=== PATIENT | male | born 1935 | race Caucasian/White ===

== ENCOUNTER 2023-10-26 06:21 | Day surgery (SDC) | payer MEDICARE, OTHER, SELFPAY ==
[2023-10-26 09:33] VITALS: BMI 31.7
[2023-10-26 09:38] VITALS: BP 108/51
[2023-10-26 09:56] VITALS: BMI 31.7
[2023-10-26 12:17] VITALS: BP 97/53
[2023-10-26 12:30] VITALS: BP 98/59
[2023-10-26 12:45] VITALS: BP 113/59
== END 2023-10-26 13:10 | disposition home or self-care (01) ==
LOC: SDS 06:21
PROVIDERS: ATTENDING PHYSICIAN Internal Medicine
DX: K22.2 Esophageal obstruction (principal); Q39.9 Congenital malformation of esophagus, unspecified; K44.9 Diaphragmatic hernia without obstruction or gangrene; T18.2XXA Foreign body in stomach, initial encounter; Y93.89 Activity, other specified; R13.10 Dysphagia, unspecified
CPT/HCPCS: 43249; C1726

== ENCOUNTER → 2024-01-18 06:11 | Outpatient (REF) | payer MEDICARE, OTHER, SELFPAY ==
[2024-01-18 09:40] LABS: Urine Albumin Negative (Neg - Trace); Urine Bilirubin Negative (Negative); Urine Character Clear (Clear); Urine Color Yellow; Urine Glucose Negative (Negative); Urine Ketone Negative (Negative); Urine Leukocyte Trace (Negative); Urine Nitrite Negative (Negative); Urine Occult Blood 1+ (Negative); Urine Urobilinogen Negative (Neg - 1+)
[2024-01-18 10:01] LABS: % Basophils 0.7 % (0-2); % Eosinophils 7.5 % (0-6); % Immature Granulocytes 0.2 % (0-0.5); % Lymphocytes 31.1 % (20.5-51.1); % Monocytes 10.4 % (1.7-9.3); % Neutrophils 50.1 % (42.2-75.2); Absolute Eosinophils 0.4 10^3/uL (0-0.7); Absolute Lymphocytes 1.7 10^3/uL (1.2-3.4); Absolute Monocytes 0.6 10^3/uL (0.1-0.6); Absolute Neutrophils 2.8 10^3/uL (1.4-6.5); Hematocrit 38.3 % (39.0-52.0); Hemoglobin 12.4 g/dL (13.0-18.0); Mean Corp Hgb Conc. 32.4 g/dL (33.0-37.0); Mean Corpuscular Hgb 31.6 pg (27.0-31.0); Mean Corpuscular Volume 97.5 fL (80.0-94.0); Mean Platelet Volume 11.5 fL (7.4-10.4); Nucleated Red Blood Cells % 0 % (-); Platelet Count 159 10^3/uL (130-400); Red Blood Cell Count 3.93 10^6/uL (4.70-6.10); Red Cell Dist. Width 13.9 % (11.5-14.5); White Blood Cell Count 5.5 10^3/uL (4.8-10.8)
[2024-01-18 10:06] LABS: Urine Calcium Oxalate Crystals Present; Urine Red Blood Cell 0-2 /HPF (0-2)
[2024-01-18 10:34] LABS: ALT (SGPT) 17 U/L (0-50); AST (SGOT) 21 U/L (17-59); Albumin 3.6 g/dl (3.5-5.0); Alkaline Phosphatase 95 U/L (38-126); Blood Urea Nitrogen 18 mg/dl (9-20); Calcium 9.3 mg/dl (8.4-10.2); Carbon Dioxide 26 mmol/L (22-30); Chloride 108 mmol/L (98-107); Glucose 97 mg/dl (70-99); HDL Cholesterol 46 mg/dl; LDL Cholesterol, Calculated 45 mg/dl; Potassium 4.3 mmol/L (3.5-5.1); Sodium 142 mmol/L (135-145); Total Bilirubin 0.6 mg/dl (0.2-1.3); Total Cholesterol 117 mg/dl (50-199); Total Protein 6.2 g/dl (6.3-8.2); Triglyceride 130 mg/dl (10-149); Very Low Density Lipoprotein 26 mg/dl (0-30); eGFR > 60.00
[2024-01-18 10:36] LABS: C-Reactive Protein < 5.00 mg/L (0.0-10.00)
[2024-01-18 10:53] LABS: Vitamin D, 25-OH*** 47.2 ng/mL (30-80)
== END ==
LOC: HWLAB 06:11
PROVIDERS: ATTENDING PHYSICIAN Internal Medicine Rheumatology; FAMILY PHYSICIAN Internal Medicine Geriatric Medicine
DX: I10 Essential (primary) hypertension (principal); I49.3 Ventricular premature depolarization; E78.2 Mixed hyperlipidemia; I45.10 Unspecified right bundle-branch block; R06.2 Wheezing; E03.9 Hypothyroidism, unspecified; E55.9 Vitamin D deficiency, unspecified; M11.20 Other chondrocalcinosis, unspecified site; Z79.899 Other long term (current) drug therapy; K21.9 Gastro-esophageal reflux disease without esophagitis; K59.00 Constipation, unspecified
CPT/HCPCS: 36415; 80053; 80061; 81003; 81015; 82306; 85025; 86140

== ENCOUNTER → 2024-02-11 12:53 | Outpatient (REF) | payer MEDICARE, OTHER, SELFPAY | LOC: HWRCS 12:53 | PROVIDERS: ATTENDING PHYSICIAN Internal Medicine Cardiovascular Disease; FAMILY PHYSICIAN Internal Medicine Geriatric Medicine | DX: Z98.890 Other specified postprocedural states (principal); I10 Essential (primary) hypertension; I49.3 Ventricular premature depolarization; I45.10 Unspecified right bundle-branch block | CPT/HCPCS: 93306 ==

== ENCOUNTER 2024-02-26 17:16 | Day surgery (SDC) | payer MEDICARE, OTHER, SELFPAY ==
[2024-02-26] VITALS (9 sets, daily range): BP systolic 121–168; BP diastolic 58–84
--- NOTE | 2024-02-26 17:41 | ED.GENMED ---
History of Present Illness
General
Chief Complaint: Swallowing Problem
Time Seen by Provider: 02/26/24 17:30
History of Present Illness
History of Present Illness:
Patient is an 88-year-old male with a history of esophageal stenosis and prior food impactions who presents with similar symptoms. He notes that he was eating fish last night and felt a piece get stuck. States he has not been able to tolerate any
p.o. liquids or solids
Past History
Past History
ED Past Medical History: CAD, COPD, HTN, Hypercholesterolemia, [place], Hypothyroidism and Other
ED Past Surgical History: Appendectomy, Cardiac (Stents X 2), Orthopedic (Right knee replacement) and Other (Hernia repair)
Social History
Tobacco: Former smoker
Alcohol: Occasional
Drug: None
Personal:
Living: with family
Employment: Employed
Family History
Family History: Hypertension
Phy Exam
Physical Exam
Physical Exam:
General: uncomfortable, holding emesis basin
Head: NCAT
Neck, Normal in appearance, no swelling
Respiratory: No Respiratory distress
Abdomen: No distension, no tenderness
Ext: no edema
Neuro: ARREDONDO, AOx4
Psych: Normal affect
Skin: Normal color
Course
Orders/Labs/Results
Orders:
Orders
02/26/24 17:24
EKG with chest pain [ECG as needed] As Directed
ECG as needed for:: Chest Pain
02/26/24 17:27
Electrocardiogram (*1) Urgent
Reason for Study: Chest Pain
Cardiac Monitoring- Treatment ONCE
EKG- Treatment ONCE
IV Insert/Care/Rem.- Treatment PRN
O2 Therapy [RESP] Urgent
Titrate/Wean O2 to maintain O2 sat greater than (%): 90
Special Instructions: Maintain sats >/=90%
Pulse Ox/spot Check [RESP] Urgent
Quantity: 1
Special Instructions: ON ROOM AIR
02/26/24 18:02
Complete Blood Count/With Diff Urgent
Comprehensive Metabolic Panel Urgent
LFT [Bghds-Pjac-Dtzwryj] Urgent
Lipase Urgent
Troponin I Urgent
02/26/24 18:22
Pantoprazole [Protonix IV] 40 mg IV NOW STA
02/26/24 18:51
Famotidine [Pepcid] 20 mg .ROUTE .STK-MED ONE
Glycopyrrolate [Robinul] 0.2 mg .ROUTE .STK-MED ONE
Lidocaine HCl/Pf [Xylocaine-Mpf 1% Vial] 50 mg .ROUTE .STK-MED ONE
Neostigmine [Prostigmin] 3 mg .ROUTE .STK-MED ONE
Ondansetron Injectable [Zofran] 4 mg .ROUTE .STK-MED ONE
Phenylephrine HCl/0.9% NaCl [Justyn-Synephrine] 1,000 mcg .ROUTE .STK-MED ONE
Propofol [Diprivan] 20 ml .ROUTE .STK-MED
Rocuronium [place] [Rocuronium] 50 mg .ROUTE .STK-MED ONE
Succinylcholine Chloride [Succinylcholine] 200 mg .ROUTE .STK-MED ONE
Sugammadex Sodium [Bridion] 200 mg .ROUTE .STK-MED ONE
02/26/24 18:59
Morphine Sulfate 4 mg IV NOW STA
Abnormal Lab Results
02/26/24
18:02
RBC 4.49 L 10^6/uL
(4.70-6.10)
MCH 32.1 H pg
(27.0-31.0)
MPV 10.8 H fL
(7.4-10.4)
Chloride 108 H mmol/L
(98-107)
BUN 21 H mg/dl
(9-20)
Total Bilirubin 2.0 H mg/dl
(0.2-1.3)
02/26/24 18:02
02/26/24 18:02
Vital Signs
Initial and Last Documented VS:
Initial Vital Signs
Temp Pulse Resp BP Pulse Ox
98 F 82 18 138/71 93
02/26/24 17:17 02/26/24 17:17 02/26/24 17:17 02/26/24 17:17 02/26/24 17:17
Last Documented Vital Signs
Temp Pulse Resp BP Pulse Ox
97.6 F 85 16 136/73 99
02/26/24 19:58 02/26/24 20:00 02/26/24 20:00 02/26/24 20:00 02/26/24 20:13
*Critical Care Note
Total Time (30-74mins, 75-104mins- exclusive of procedures): Not Applicable
ED Attending Note
ED Attending Note
ED Attending Note:
Patient with suspected esophageal food impaction. Consulted Dr. Saha, buyer intern on-call who will see the patient
Patient going to endoscopy for definitive care
-
Portions of this chart may have been created with voice recognition software.� Occasional wrong word or��sound alike� substitutions may have occurred due to the inherent limitations of voice recognition software.
Discharge Plan
Departure
Patient Disposition: GI LAB
Date of Disposition: 02/26/24
Time of Disposition: 18:56
Admit to: GI lab
Admit to doctor: Yifan
Presentation/result/management discussed w/ accepting MD/DO: Yifan
Patient with high blood pressure during this ER visit?: Yes
Condition: Good
Covid-19: Not Applicable
Discharge Problem:
Esophageal obstruction due to food impaction
Prescriptions:
No Action
levothyroxine 75 MCG tablet
88 mcg PO DAILY
albuterol sulfate 1 PUFF HFA aerosol inhaler
2 puff inhalation R Q4HPRN PRN (Reason: Wheezing, SOB) Qty: 1 0RF
latanoprost
1 drp BOTH EYES HS
multivitamin Tablet
1 tab PO DAILY
losartan 50 mg Tablet
50 mg PO BID
nitroglycerin 0.3 mg Tablet, Sublingual
0.3 mg SUBLINGUAL Q5-15M PRN (Reason: chest pain)
valacyclovir 500 mg Tablet
500 mg PO TID
calcium carbonate-vitamin D2 600 mg calcium- 200 unit Tablet
1 tab PO DAILY
colchicine 0.5 mg Tablet
0.6 mg PO .MONWEDFRI
PreserVision AREDS 2,148 mcg-113 mg-45 mg-17.4mg Tablet
2 tab PO BID
pantoprazole [Protonix] 40 mg tablet,delayed release (DR/EC)
40 mg PO BID Qty: 120 0RF
amoxicillin-pot clavulanate [Augmentin] 250-62.5 mg/5 mL suspension for reconstitution
10 ml PO TID 4 Days Qty: 120 0RF
atorvastatin 40 MG tablet
40 mg PO QPM Qty: 0 0RF
clopidogrel 75 MG tablet
75 mg PO DAILY Qty: 0 0RF
doxazosin 2 MG tablet
2 mg PO DAILY Qty: 0 0RF
prednisone 20 mg tablet
10 mg PO PRN PRN (Reason: Gout)
carvedilol 6.25 mg Tablet
6.25 mg PO BID
amlodipine 2.5 mg Tablet
2.5 mg PO DAILY
albuterol 90 mcg/actuation Aerosol
90 mcg INHALATION PRN PRN (Reason: SOB)
Anoro Ellipta 62.5-25 mcg/actuation Blister With Device
1 inh INHALATION DAILY
Referrals:
Zurdo Duran MD [Family Provider] -
Discharge Date and Time
Print Language: COMORAN
[2024-02-26 18:09] LABS: % Basophils 0.3 % (0-2); % Eosinophils 2.3 % (0-6); % Immature Granulocytes 0.3 % (0-0.5); % Lymphocytes 21.2 % (20.5-51.1); % Monocytes 7.5 % (1.7-9.3); % Neutrophils 68.4 % (42.2-75.2); Absolute Eosinophils 0.2 10^3/uL (0-0.7); Absolute Lymphocytes 1.5 10^3/uL (1.2-3.4); Absolute Monocytes 0.5 10^3/uL (0.1-0.6); Absolute Neutrophils 4.8 10^3/uL (1.4-6.5); Hematocrit 41.7 % (39.0-52.0); Hemoglobin 14.4 g/dL (13.0-18.0); Mean Corp Hgb Conc. 34.5 g/dL (33.0-37.0); Mean Corpuscular Hgb 32.1 pg (27.0-31.0); Mean Corpuscular Volume 92.9 fL (80.0-94.0); Mean Platelet Volume 10.8 fL (7.4-10.4); Nucleated Red Blood Cells % 0 % (-); Platelet Count 183 10^3/uL (130-400); Red Blood Cell Count 4.49 10^6/uL (4.70-6.10); Red Cell Dist. Width 14.1 % (11.5-14.5)
[2024-02-26 18:21] LABS: ALT (SGPT) 24 U/L (0-50); AST (SGOT) 25 U/L (17-59); Albumin 4.4 g/dl (3.5-5.0); Alkaline Phosphatase 113 U/L (38-126); Blood Urea Nitrogen 21 mg/dl (9-20); Calcium 10.1 mg/dl (8.4-10.2); Carbon Dioxide 27 mmol/L (22-30); Chloride 108 mmol/L (98-107); Direct Bilirubin 0.2 mg/dl (0.0-0.4); Glucose 88 mg/dl (70-99); Lipase 52 U/L (23-300); Potassium 3.5 mmol/L (3.5-5.1); Sodium 144 mmol/L (135-145); Total Protein 7.3 g/dl (6.3-8.2); eGFR > 60.00
--- NOTE | 2024-02-26 18:26 | CON.GI ---
Consultation
-
Date/Time Consultation Performed: 02/26/24
Performing Provider: Carmelo Saha MD
Reason for Consultation: dysphagia
Medical History
Chief Complaint / HPI
Chief Complaint: dysphagia
History of Present Illness:
The patient is an 88-year-old male with past medical history as noted with food impaction. He has had longstanding history of dysphagia, tortuous esophagus and esophageal stricture in the past, status post several dilations including October of this
year to 15 mm. He has had some increasing dysphagia over the past several weeks, and last night when eating fish had acute onset of dysphagia, unable to tolerate secretions since then. He does have some mild discomfort though no severe discomfort,
and denies any fevers, cough or other chest pain. He had an echo recently that showed normal EF and otherwise no severe valvular disease. Denies any exertional chest pain is overall been doing well from a cardiac standpoint.
Past Medical History
Past Medical History: Other (Coronary disease, status post IN in 2006, CVA with left carotid endarterectomy, BPH, hypothyroid, osteoporosis, obstructive sleep apnea, hypertension, high cholesterol, right bundle branch block, PSVT, PVC, COPD,
pseudogout, squamous cell carcinoma.)
Past Surgical History: Other (Carotid Endarterectomy - L Hernia Repair Appendectomy Tonsillectomy R Knee replacement(2012) Cardiac cath Moh's LT lower leg 03/2018)
Social History
Tobacco: Former Smoker
Alcohol: None
Family History
Family History: Reviewed & Not Pertinent
Allergies / Home Medications
Allergy/AdvReac Type Severity Reaction Status Date / Time
No Known Allergies Allergy Verified 10/26/23 09:37
�Medication �Instructions �Recorded
levothyroxine 75 mcg tablet 88 mcg PO DAILY Thyroid 06/18/12
albuterol sulfate 90 mcg/actuation 2 puff inhalation R Q4HPRN PRN 11/15/20
aerosol inhaler Wheezing, SOB ##1
latanoprost 1 drp BOTH EYES HS glaucoma 06/18/23
calcium carb-ergocalciferol (vit 1 tab PO DAILY Supplement 06/19/23
D2) 600 mg calcium-200 unit tablet
colchicine 0.5 mg tablet 0.6 mg PO .MONWEDFRI Gout 06/19/23
losartan 50 mg tablet 50 mg PO BID Blood Pressure 06/19/23
multivitamin 1 tab PO DAILY Blood Pressure 06/19/23
nitroglycerin 0.3 mg sublingual 0.3 mg sublingual Q5-15M PRN chest 06/19/23
tablet pain
valacyclovir 500 mg tablet 500 mg PO TID 06/19/23
vitamins A,C,O-pdes-ldayjy 2,148 2 tab PO BID Supplement 06/19/23
mcg-113 mg-45 mg-17.4 mg tablet
(PreserVision AREDS)
amoxicillin 250 mg-potassium 10 ml PO TID Infection 4 days #120 06/20/23
clavulanate 62.5 mg/5 mL oral mL
suspension (Augmentin)
atorvastatin 40 mg tablet 40 mg PO QPM High cholesterol ##0 06/20/23
clopidogrel 75 mg tablet 75 mg PO DAILY Blood clot 06/20/23
prevention/tx ##0
doxazosin 2 mg tablet 2 mg PO DAILY prostate ##0 06/20/23
pantoprazole 40 mg tablet,delayed 40 mg PO BID Gastrointestinal 06/20/23
release (Protonix) issue #120 tabs
albuterol 90 mcg/actuation aerosol 90 mcg inhalation PRN PRN SOB 08/14/23
inhaler
amlodipine 2.5 mg tablet 2.5 mg PO DAILY 08/14/23
carvedilol 6.25 mg tablet 6.25 mg PO BID 08/14/23
prednisone 20 mg tablet 10 mg PO PRN PRN Gout 08/14/23
umeclidinium 62.5 mcg-vilanterol 1 inh inhalation DAILY 08/14/23
25 mcg/actuation powdr for
inhalation (Anoro Ellipta)
Review of Systems
-
All other systems: A 12 pt ROS was Negative except as stated above in HPI
Vital Signs
Temp Pulse Resp BP Pulse Ox
98 F 82 18 138/71 93
02/26/24 17:17 02/26/24 17:17 02/26/24 17:17 02/26/24 17:17 02/26/24 17:17
Physical Exam
Exam
General: NAD
HEENT: MMM, anicteric, no lymphadenopathy
Heart: Regular, no murmurs
Lungs: CTA bilaterally
Abdomen: normal bowel sounds, soft, no tenderness, no rebound or guarding, no masses, bruits or ascites
Extremeties: no edema
Skin: no rashes
Results
WBC 7.0 10^3/uL (4.8-10.8) 02/26/24 18:02
Hgb 14.4 g/dL (13.0-18.0) 02/26/24 18:02
Hct 41.7 % (39.0-52.0) 02/26/24 18:02
MCV 92.9 fL (80.0-94.0) 02/26/24 18:02
Plt Count 183 10^3/uL (130-400) 02/26/24 18:02
Absolute Neuts (auto) 4.8 10^3/uL (1.4-6.5) 02/26/24 18:02
Sodium 144 mmol/L (135-145) 02/26/24 18:02
Potassium 3.5 mmol/L (3.5-5.1) 02/26/24 18:02
Chloride 108 mmol/L (98-107) H 02/26/24 18:02
Carbon Dioxide 27 mmol/L (22-30) 02/26/24 18:02
BUN 21 mg/dl (9-20) H 02/26/24 18:02
Creatinine 0.7 mg/dL (0.7-1.3) 02/26/24 18:02
Calcium 10.1 mg/dl (8.4-10.2) 02/26/24 18:02
Total Bilirubin 2.0 mg/dl (0.2-1.3) H 02/26/24 18:02
AST 25 U/L (17-59) 02/26/24 18:02
ALT 24 U/L (0-50) 02/26/24 18:02
Alkaline Phosphatase 113 U/L (38-126) 02/26/24 18:02
Lipase 52 U/L (23-300) 02/26/24 18:02
Diagnostic Image Results:
Prior GI Procedures:
EGD:
Colonoscopy:
Assessment / Plan
-
1. Food impaction: With history of esophageal stricture status post multiple dilations in the past and tortuous esophagus, now with recurrent impaction, unable to tolerate secretions. Will plan urgent endoscopy. Discussed risks and benefits at
length with him and his . Pending this would likely plan repeat EGD as an outpatient with Dr. Asher for further dilation.
-
-
Thank you for consultation and allowing me to participate in the patient's care. Please call the group leader semiconductor processing GI physician during the after hours with any questions or concerns.
[2024-02-26 18:32] LABS: Troponin I < 0.012 ng/ml
[2024-02-26] MEDS: PROTONIX IV 40 MG IV (18:43)
--- NOTE | 2024-02-26 20:11 | SUR.PHASEI ---
patient post endo for food bolus - awake and alert. Known CLAUDIA - wears CPAP nightly and knows to use with any rest period today, loose non-productive cough. 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 vss.
== END 2024-02-26 20:40 ==
LOC: SDS 17:16
PROVIDERS: Emergency Medicine; ATTENDING PHYSICIAN Emergency Medicine; FAMILY PHYSICIAN Internal Medicine Geriatric Medicine
DX: T18.128A Food in esophagus causing other injury, initial encounter (principal); W44.F3XA Food entering into or through a natural orifice, initial encounter; K22.2 Esophageal obstruction; R13.10 Dysphagia, unspecified; I25.10 Atherosclerotic heart disease of native coronary artery without angina pectoris; I45.10 Unspecified right bundle-branch block; I10 Essential (primary) hypertension; J44.9 Chronic obstructive pulmonary disease, unspecified
CPT/HCPCS: 43247; 80053; 80076; 83690; 84484; 85025; 93005

== ENCOUNTER → 2024-03-19 06:06 | Outpatient (REF) | payer MEDICARE, OTHER, SELFPAY ==
[2024-03-19 10:44] LABS: ALT (SGPT) 24 U/L (0-50); AST (SGOT) 22 U/L (17-59); Albumin 3.7 g/dl (3.5-5.0); Alkaline Phosphatase 94 U/L (38-126); Blood Urea Nitrogen 17 mg/dl (9-20); Calcium 9.5 mg/dl (8.4-10.2); Carbon Dioxide 28 mmol/L (22-30); Chloride 109 mmol/L (98-107); Glucose 101 mg/dl (70-99); HDL Cholesterol 46 mg/dl; Potassium 4.1 mmol/L (3.5-5.1); Sodium 140 mmol/L (135-145); Total Cholesterol 140 mg/dl (50-199); Total Protein 6.2 g/dl (6.3-8.2); eGFR > 60.00
[2024-03-19 10:56] LABS: % Basophils 0.4 % (0-2); % Eosinophils 6.2 % (0-6); % Immature Granulocytes 0.2 % (0-0.5); % Lymphocytes 33.8 % (20.5-51.1); % Monocytes 11.5 % (1.7-9.3); % Neutrophils 47.9 % (42.2-75.2); Absolute Eosinophils 0.3 10^3/uL (0-0.7); Absolute Lymphocytes 1.8 10^3/uL (1.2-3.4); Absolute Monocytes 0.6 10^3/uL (0.1-0.6); Absolute Neutrophils 2.6 10^3/uL (1.4-6.5); Hemoglobin 12.8 g/dL (13.0-18.0); Mean Corp Hgb Conc. 33.7 g/dL (33.0-37.0); Mean Corpuscular Hgb 32.7 pg (27.0-31.0); Mean Corpuscular Volume 96.9 fL (80.0-94.0); Mean Platelet Volume 11.3 fL (7.4-10.4); Nucleated Red Blood Cells % 0 % (-); Platelet Count 193 10^3/uL (130-400); Red Blood Cell Count 3.92 10^6/uL (4.70-6.10); Red Cell Dist. Width 13.7 % (11.5-14.5); White Blood Cell Count 5.3 10^3/uL (4.8-10.8)
[2024-03-19 10:58] LABS: Free T4 1.17 ng/dl (0.78-2.19); Vitamin D, 25-OH*** 44.3 ng/mL (30-80)
[2024-03-19 11:10] LABS: LDL Cholesterol, Calculated 70 mg/dl; Triglyceride 121 mg/dl (10-149); Very Low Density Lipoprotein 24 mg/dl (0-30)
[2024-03-19 11:12] LABS: TSH 6.76 uIU/ml (0.47-4.68)
== END ==
LOC: HWLAB 06:06
PROVIDERS: ATTENDING PHYSICIAN Internal Medicine Geriatric Medicine
DX: I10 Essential (primary) hypertension (principal); I49.3 Ventricular premature depolarization; E78.2 Mixed hyperlipidemia; I45.10 Unspecified right bundle-branch block; R06.02 Shortness of breath; K21.9 Gastro-esophageal reflux disease without esophagitis; K59.00 Constipation, unspecified; E03.9 Hypothyroidism, unspecified; J44.1 Chronic obstructive pulmonary disease with (acute) exacerbation
CPT/HCPCS: 36415; 80053; 80061; 82306; 84439; 84443; 85025

== ENCOUNTER 2024-03-27 21:12 | Emergency (ER) | payer MEDICARE, OTHER, SELFPAY ==
[2024-03-27 21:18] VITALS: BP 95/56
[2024-03-27 21:37] LABS: % Basophils 0.5 % (0-2); % Eosinophils 4.9 % (0-6); % Immature Granulocytes 0.3 % (0-0.5); % Lymphocytes 31.1 % (20.5-51.1); % Monocytes 8.8 % (1.7-9.3); % Neutrophils 54.4 % (42.2-75.2); Absolute Eosinophils 0.3 10^3/uL (0-0.7); Absolute Monocytes 0.6 10^3/uL (0.1-0.6); Absolute Neutrophils 3.5 10^3/uL (1.4-6.5); Hematocrit 36.4 % (39.0-52.0); Hemoglobin 12.5 g/dL (13.0-18.0); Mean Corp Hgb Conc. 34.3 g/dL (33.0-37.0); Mean Corpuscular Hgb 31.9 pg (27.0-31.0); Mean Corpuscular Volume 92.9 fL (80.0-94.0); Mean Platelet Volume 10.4 fL (7.4-10.4); Nucleated Red Blood Cells % 0 % (-); Platelet Count 176 10^3/uL (130-400); Red Blood Cell Count 3.92 10^6/uL (4.70-6.10); Red Cell Dist. Width 13.4 % (11.5-14.5); White Blood Cell Count 6.5 10^3/uL (4.8-10.8)
[2024-03-27 21:47] LABS: INR 1.02; PT 13.4 Sec (11.4-14.6)
[2024-03-27 21:55] LABS: ALT (SGPT) 23 U/L (0-50); AST (SGOT) 25 U/L (17-59); Albumin 3.8 g/dl (3.5-5.0); Alkaline Phosphatase 96 U/L (38-126); Blood Urea Nitrogen 21 mg/dl (9-20); Calcium 9.3 mg/dl (8.4-10.2); Carbon Dioxide 28 mmol/L (22-30); Chloride 104 mmol/L (98-107); Glucose 140 mg/dl (70-99); Potassium 4.2 mmol/L (3.5-5.1); Sodium 137 mmol/L (135-145); Total Bilirubin 0.8 mg/dl (0.2-1.3); Total Protein 6.3 g/dl (6.3-8.2); eGFR > 60.00
[2024-03-27 22:01] LABS: Troponin I < 0.012 ng/ml
[2024-03-27 22:25] VITALS: BP 85/52
[2024-03-27 22:31] VITALS: BP 112/80
--- NOTE | 2024-03-27 23:44 | ED.GENMED ---
History of Present Illness
General
Chief Complaint: Dizziness
Source: patient and family
Exam Limitations: none
Time Seen by Provider: 03/27/24 22:53
Nursing documentation reviewed up to this point in time: agreed with
History of Present Illness
History of Present Illness:
88-year-old male history of hypertension hypercholesterolemia hypothyroid recently had blood pressure meds changed-amlodipine was stopped, also had his thyroid medicine increased, he has had several episodes where he feels a flushed feeling of
warmth over his head and loses his vision is never seen a physician acutely for this, always after the fact, this evening he was sitting down watching TV had an episode lasted 5 to 7 minutes, no arm or leg weakness, no fever or chills, no headache,
did have low blood pressures during the spells in the 70s to 80s systolic low blood pressure remains here, denies any chest pain, no dysuria no frequency
Past History
Past History
ED Past Medical History: CAD, COPD, HTN, Hypercholesterolemia, [place], Hypothyroidism and Other
ED Past Surgical History: Appendectomy, Cardiac (Stents X 2), Orthopedic (Right knee replacement) and Other (Hernia repair)
Social History
Tobacco: Former smoker
Alcohol: Occasional
Drug: None
Personal:
Living: with family
Employment: Employed
Family History
Family History: Hypertension
Review of Systems
Review of Systems
All Other Systems: Not applicable
Constitutional: Denies fever, fatigue or chills
EENT: Reports no symptoms
Respiratory: Reports no symptoms; Denies cough or trouble breathing
Cardiac: Denies chest pain, palpitations or syncope
ABD/GI: Reports no symptoms
: Reports no symptoms
Musculoskeletal: Reports no symptoms
Neurological: Reports dizzy and other (Vision loss); Denies headache
Endocrine: Reports no symptoms
Hematologic/Lymphatic: Reports no symptoms
Psychiatric: Reports no symptoms
Phy Exam
Physical Exam
Physical Exam:
Physical Exam
General: 88-year-old male hypotensive nontoxic
Neck no jaundice
Heart: Regular
Lungs: no acute respiratory distress. clear bilaterally
Abdomen: Nontender
Neuro: alert and oriented. no focal neurological deficits
Skin: no rash
Psychiatric: well kept. interactive and cooperative
Extremities: no edema.
Course
Orders/Labs/Results
Orders:
Orders
03/27/24 21:20
Electrocardiogram (*1) Urgent
Reason for Study: Chest Pain
EKG- Treatment ONCE
03/27/24 21:32
Complete Blood Count/With Diff Urgent
Comprehensive Metabolic Panel Urgent
Prothrombin Time Urgent
TSH Urgent
Comment: ADDED
Troponin I Urgent
03/27/24 23:16
0.9% Sodium Chloride 1000 ml [Nss] 1,000 ml IV BOLUS
03/27/24 23:17
CT Head W/o Iv Contrast Urgent
Comment:
Reason For Exam: vision loss
Orthostatic VS- Treatment ONCE
Rectal Temp- Treatment ONCE
Urinalysis Reflex To Culture Urgent
03/27/24 23:45
CR Chest - 2 Views Urgent
Comment:
Reason For Exam: low bp
03/28/24 00:08
Add On- LAB Urgent
Tests Added?: tsh
Abnormal Lab Results
03/27/24
21:32
RBC 3.92 L 10^6/uL
(4.70-6.10)
Hgb 12.5 L g/dL
(13.0-18.0)
Hct 36.4 L %
(39.0-52.0)
MCH 31.9 H pg
(27.0-31.0)
BUN 21 H mg/dl
(9-20)
Glucose 140 H mg/dl
(70-99)
03/27/24 21:32
03/27/24 21:32
Vital Signs
Initial and Last Documented VS:
Initial Vital Signs
Temp Pulse Resp BP Pulse Ox
97.4 F 91 16 95/56 98
03/27/24 21:18 03/27/24 21:18 03/27/24 21:18 03/27/24 21:18 03/27/24 21:18
Last Documented Vital Signs
Temp Pulse Resp BP Pulse Ox
98.9 F 81 20 140/75 98
03/28/24 00:18 03/28/24 00:19 03/28/24 00:19 03/28/24 00:19 03/28/24 00:19
MDM/Problems Addressed
Differential Diagnosis Includes:
Orthostasis, electrolyte abnormality UTI infection doubt GROUP PRODUCT MANAGER event, pericardial effusion, pulmonary embolism
MDM/Problems Addressed:
Low blood pressure, patient
Chronic conditions affecting care:
Hypertension, hypothyroid
Acute Exacerbation and/or Progression of Chronic Illness: HTN
*Radiology
Radiology exam reviewed: radiology read reviewed
*Pulse Oximetry
Patient hypoxic: no
*EKG
Interpreted by ED Provider?: Yes
Interpretation: abnormal
Comparison EKG: no comparison EKG present
Heart Rate: 78
Rate: normal
QRS Pattern: right bundle branch block
Ischemia: non-specific ST changes
*Healthcare Manager Interpretation
Rate: normal
Interpretation: normal
Heart Rate: 78
Rhythm: sinus
*Critical Care Note
Total Time (30-74mins, 75-104mins- exclusive of procedures): Not Applicable
Update Note
Update Note:
Update CT scan report noted labs noted chest x-ray pending
Update blood pressure normalized, labs are noted afebrile,
Believe the patient can be safely discharged home and follow-up with PCP may need some more titration down on his BP meds
ED Attending Note
-
Portions of this chart may have been created with voice recognition software.� Occasional wrong word or��sound alike� substitutions may have occurred due to the inherent limitations of voice recognition software.
Discharge Plan
Departure
Patient Disposition: Home (Routine Discharge)
Date of Disposition: 03/28/24
Time of Disposition: 01:20
Patient with high blood pressure during this ER visit?: No
Condition: Good
Discharge Problem:
Blood pressure abnormally low
Instructions: Dizziness, Dealing with Low Blood Pressure from the Drugs You Take, Orthostatic hypotension
Prescriptions:
No Action
levothyroxine 75 MCG tablet
88 mcg PO DAILY
albuterol sulfate 1 PUFF HFA aerosol inhaler
2 puff inhalation R Q4HPRN PRN (Reason: Wheezing, SOB) Qty: 1 0RF
latanoprost
1 drp BOTH EYES HS
multivitamin Tablet
1 tab PO DAILY
losartan 50 mg Tablet
50 mg PO BID
nitroglycerin 0.3 mg Tablet, Sublingual
0.3 mg SUBLINGUAL Q5-15M PRN (Reason: chest pain)
valacyclovir 500 mg Tablet
500 mg PO TID
calcium carbonate-vitamin D2 600 mg calcium- 200 unit Tablet
1 tab PO DAILY
colchicine 0.5 mg Tablet
0.6 mg PO .MONWEDFRI
PreserVision AREDS 2,148 mcg-113 mg-45 mg-17.4mg Tablet
2 tab PO BID
pantoprazole [Protonix] 40 mg tablet,delayed release (DR/EC)
40 mg PO BID Qty: 120 0RF
amoxicillin-pot clavulanate [Augmentin] 250-62.5 mg/5 mL suspension for reconstitution
10 ml PO TID 4 Days Qty: 120 0RF
atorvastatin 40 MG tablet
40 mg PO QPM Qty: 0 0RF
clopidogrel 75 MG tablet
75 mg PO DAILY Qty: 0 0RF
doxazosin 2 MG tablet
2 mg PO DAILY Qty: 0 0RF
prednisone 20 mg tablet
10 mg PO PRN PRN (Reason: Gout)
carvedilol 6.25 mg Tablet
6.25 mg PO BID
amlodipine 2.5 mg Tablet
2.5 mg PO DAILY
albuterol 90 mcg/actuation Aerosol
90 mcg INHALATION PRN PRN (Reason: SOB)
Anoro Ellipta 62.5-25 mcg/actuation Blister With Device
1 inh INHALATION DAILY
Referrals:
Zurdo Duran MD [Family Provider] - Next open appointment
Activity Restrictions/Additional Instructions:
Rest and plenty fluids, take your blood pressure in the morning and evening and marked the measurements down
Call your primary care provider tomorrow to discuss your symptoms
Return to the ER for worsening symptoms or any other concerns
Interventions
Interventions:
*Risk Screen - Suicide Last Done: 03/27/24 21:18
*General Assessment Last Done: 03/27/24 22:28
*Neglect/Abuse Screening Last Done: 03/27/24 21:18
ED- Fall Risk Assessment Last Done: 03/27/24 21:18
ED- Cardiac Assessment Last Done: 03/27/24 22:29
ED- Neurological Assessment Last Done: 03/27/24 22:26
ED Swallowing Screen Last Done: 03/27/24 22:26
Discharge Date and Time
Print Language: AMHARIC
[2024-03-28] MEDS: NSS 1000 IV (00:17)
[2024-03-28 00:19] VITALS: BP 140/75
[2024-03-28 01:07] VITALS: BP 145/73
[2024-03-28 01:35] LABS: TSH 4.85 uIU/ml (0.47-4.68)
== END 2024-03-28 02:16 | disposition home or self-care (01) ==
LOC: EMR 21:12
PROVIDERS: Emergency Medicine; EMERGENCY PHYSICIAN Emergency Medicine; FAMILY PHYSICIAN Internal Medicine Geriatric Medicine
DX: R03.1 Nonspecific low blood-pressure reading (principal); E03.9 Hypothyroidism, unspecified; Z87.891 Personal history of nicotine dependence
CPT/HCPCS: 99285; 96360; 70450; 71046; 80053; 84443; 84484; 85025; 85610; 93005

== ENCOUNTER 2024-04-18 06:23 | Day surgery (SDC) | payer MEDICARE, OTHER, SELFPAY ==
[2024-04-18 09:30] VITALS: BP 142/69
[2024-04-18 09:44] VITALS: BMI 32.2
[2024-04-18 10:35] VITALS: BP 137/61
[2024-04-18 10:50] VITALS: BP 130/82
[2024-04-18 10:56] VITALS: BP 153/67
== END 2024-04-18 11:15 | disposition home or self-care (01) ==
LOC: GI 06:23
PROVIDERS: ATTENDING PHYSICIAN Internal Medicine
DX: K22.2 Esophageal obstruction (principal); K22.4 Dyskinesia of esophagus
CPT/HCPCS: 43249; C1726

== ENCOUNTER → 2024-07-04 13:56 | Outpatient (REF) | payer MEDICARE, OTHER, SELFPAY | LOC: HWRAD 13:56 | PROVIDERS: ATTENDING PHYSICIAN Internal Medicine Geriatric Medicine | DX: I10 Essential (primary) hypertension (principal); I49.3 Ventricular premature depolarization; I65.23 Occlusion and stenosis of bilateral carotid arteries | CPT/HCPCS: 93880 ==

== ENCOUNTER → 2024-07-09 06:09 | Outpatient (REF) | payer MEDICARE, OTHER, SELFPAY ==
[2024-07-09 09:17] LABS: % Basophils 0.5 % (0-2); % Eosinophils 7.3 % (0-6); % Immature Granulocytes 0.2 % (0-0.5); % Lymphocytes 34.1 % (20.5-51.1); % Monocytes 10.6 % (1.7-9.3); % Neutrophils 47.3 % (42.2-75.2); Absolute Eosinophils 0.4 10^3/uL (0-0.7); Absolute Monocytes 0.6 10^3/uL (0.1-0.6); Absolute Neutrophils 2.7 10^3/uL (1.4-6.5); Hematocrit 38.8 % (39.0-52.0); Hemoglobin 12.9 g/dL (13.0-18.0); Mean Corp Hgb Conc. 33.2 g/dL (33.0-37.0); Mean Corpuscular Hgb 32.6 pg (27.0-31.0); Mean Platelet Volume 10.9 fL (7.4-10.4); Nucleated Red Blood Cells % 0 % (-); Platelet Count 177 10^3/uL (130-400); Red Blood Cell Count 3.96 10^6/uL (4.70-6.10); Red Cell Dist. Width 13.4 % (11.5-14.5); White Blood Cell Count 5.8 10^3/uL (4.8-10.8)
[2024-07-09 09:29] LABS: ALT (SGPT) 24 U/L (0-50); AST (SGOT) 22 U/L (17-59); Albumin 3.8 g/dl (3.5-5.0); Alkaline Phosphatase 105 U/L (38-126); Blood Urea Nitrogen 17 mg/dl (9-20); C-Reactive Protein < 5.00 mg/L (0.0-10.00); Calcium 9.3 mg/dl (8.4-10.2); Carbon Dioxide 30 mmol/L (22-30); Chloride 106 mmol/L (98-107); Glucose 104 mg/dl (70-99); Potassium 4.6 mmol/L (3.5-5.1); Sodium 143 mmol/L (135-145); Total Bilirubin 0.6 mg/dl (0.2-1.3); Total Protein 6.4 g/dl (6.3-8.2); eGFR > 60.00
== END ==
LOC: HWLAB 06:09
PROVIDERS: ATTENDING PHYSICIAN Internal Medicine Rheumatology; FAMILY PHYSICIAN Internal Medicine Geriatric Medicine
DX: E03.9 Hypothyroidism, unspecified (principal); E55.9 Vitamin D deficiency, unspecified; M11.20 Other chondrocalcinosis, unspecified site; Z79.899 Other long term (current) drug therapy
CPT/HCPCS: 36415; 80053; 85025; 86140

== ENCOUNTER 2024-08-26 20:47 | Emergency (ER) | payer MEDICARE, OTHER, SELFPAY ==
[2024-08-26 20:59] VITALS: BP 135/66
--- NOTE | 2024-08-26 23:32 | ED.GENMED ---
History of Present Illness
General
Chief Complaint: Wound Check/Suture Removal
Source: patient
Exam Limitations: none
Time Seen by Provider: 08/26/24 22:48
Nursing documentation reviewed up to this point in time: agreed with
History of Present Illness
History of Present Illness:
89 y/o M with h/o htn, hld
on plavix
had skin tear to LLE 2 dyas ago
went to and had 12 sutures placed
was told to leave dressing on for 2 days and remove today
pt removed the dressing and it started bleeding
it has been oozing since
but was controlled after RN put dressing in place
some mild pain and redness as well
already on antibiotcs augmentin
Past History
Past History
ED Past Medical History: CAD, COPD, HTN, Hypercholesterolemia, [place], Hypothyroidism and Other
ED Past Surgical History: Appendectomy, Cardiac (Stents X 2), Orthopedic (Right knee replacement) and Other (Hernia repair)
Social History
Tobacco: Former smoker
Alcohol: Occasional
Drug: None
Personal:
Living: with family
Employment: Employed
Family History
Family History: Hypertension
Review of Systems
Review of Systems
Allergies reviewed?: Yes
All Other Systems: Not applicable
Phy Exam
Physical Exam
Physical Exam:
GENERAL: Alert , in no apparent distress, comfortable at rest
HEAD: NCAT
CV: 2+ DP PULSES B/L
NEUROLOGICAL: Alert and oriented, no focal neuro deficits, , 5/5 strength, sensation intact, ambulation slight limp right leg
SKIN: Warm and dry, irregular shaped laceration/skin tear to LLE with hematoma under the skin
no active bleeding
some erythema distsal to the wound with warmth
MUSCULOSKELETAL: anterior LLE wound
full rom
some redness as well
PSYCH: Normal and appropriate interaction.
Course
Vital Signs
Initial and Last Documented VS:
Initial Vital Signs
Temp Pulse Resp BP Pulse Ox
36.7 C 88 20 135/66 94
08/26/24 20:59 08/26/24 20:59 08/26/24 20:59 08/26/24 20:59 08/26/24 20:59
Last Documented Vital Signs
Temp Pulse Resp BP Pulse Ox
36.7 C 88 20 135/66 94
08/26/24 20:59 08/26/24 20:59 08/26/24 20:59 08/26/24 20:59 08/26/24 20:59
MDM/Problems Addressed
Differential Diagnosis Includes:
hematoma, wound dehiscence
MDM/Problems Addressed:
89-year-old male who recently had sutures placed in his left lower extremity 2 days ago, incorrectly on the triage notices 1219 but it was 08/24
Patient was told to remove the dressing today which he did and started oozing
It is controlled here. He had a small area in the center of the wound that looks like the sutures are still in place but the skin is stretched thin there and that is probably where he blood from, there is a hematoma adjacent to it. I irrigated it
and it still did not bleed. I placed bacitracin nonstick dressing and a wrap and it did not bleed. Told to leave on for 48 hours and then remove. There is some erythema inferiorly, he is already on antibiotics. Told to follow-up with his family
doctor this week. Stable for discharge
*Critical Care Note
Total Time (30-74mins, 75-104mins- exclusive of procedures): Not Applicable
ED Attending Note
-
Portions of this chart may have been created with voice recognition software.� Occasional wrong word or��sound alike� substitutions may have occurred due to the inherent limitations of voice recognition software.
Discharge Plan
Departure
Patient Disposition: Home (Routine Discharge)
Date of Disposition: 08/26/24
Time of Disposition: 23:23
Patient with high blood pressure during this ER visit?: No
Condition: Fair
Covid-19: Not Applicable
Discharge Problem:
Visit for wound check
Instructions: Wound Care (DC)
Prescriptions:
No Action
levothyroxine 75 MCG tablet
88 mcg PO DAILY
albuterol sulfate 1 PUFF HFA aerosol inhaler
2 puff inhalation R Q4HPRN PRN (Reason: Wheezing, SOB) Qty: 1 0RF
losartan 50 mg Tablet
50 mg PO BID
nitroglycerin 0.3 mg Tablet, Sublingual
0.3 mg SUBLINGUAL Q5-15M PRN (Reason: chest pain)
colchicine 0.5 mg Tablet
0.6 mg PO .MONWEDFRI
PreserVision AREDS 2,148 mcg-113 mg-45 mg-17.4mg Tablet
2 tab PO BID
pantoprazole [Protonix] 40 mg tablet,delayed release (DR/EC)
40 mg PO BID Qty: 120 0RF
atorvastatin 40 MG tablet
40 mg PO QPM Qty: 0 0RF
clopidogrel 75 MG tablet
75 mg PO DAILY Qty: 0 0RF
doxazosin 2 MG tablet
2 mg PO DAILY Qty: 0 0RF
prednisone 20 mg tablet
10 mg PO PRN PRN (Reason: Gout)
carvedilol 6.25 mg Tablet
6.25 mg PO BID
albuterol 90 mcg/actuation Aerosol
90 mcg INHALATION PRN PRN (Reason: SOB)
Anoro Ellipta 62.5-25 mcg/actuation Blister With Device
1 inh INHALATION DAILY
aspirin [Aspir-81] 81 mg Tablet,Delayed Release (Dr/Ec)
81 mg PO DAILY
Patient Comments:
pt taking this while his Plavix is on hold for GI procedure.
amoxicillin-pot clavulanate [Augmentin] 250-62.5 mg/5 mL suspension for reconstitution
PO TID PRN (Reason: dental procedure.)
Referrals:
Zurdo Duran MD [Family Provider] -
Activity Restrictions/Additional Instructions:
elevate your leg when you are sitting
leave this dressing in place for anothre 2days
then take it off, clean it with salien and apply neosporin an dnonstick dressing
continue the antibiotics
if it starts bleeding through the dressing, apply a tighter dressing for 10 minutes but if it doesn't stop, return
see your doctor this week
Interventions
Interventions:
*Risk Screen - Suicide Last Done: 08/26/24 20:59
*General Assessment Last Done: 08/26/24 23:33
*Neglect/Abuse Screening Last Done: 08/26/24 20:59
ED- Fall Risk Assessment Last Done: 08/26/24 23:33
*ED COVID-19 Vaccine History Last Done: 08/26/24 23:33
*Nursing Disposition Last Done: 08/26/24 23:33
ED-Skin Assessment Last Done: 08/26/24 21:39
Discharge Date and Time
Print Language: MALIAN
== END 2024-08-26 23:34 | disposition home or self-care (01) ==
LOC: EMR 20:47
PROVIDERS: EMERGENCY PHYSICIAN Student in an Organized Health Care Education/Training Program; FAMILY PHYSICIAN Internal Medicine Geriatric Medicine
DX: Z48.00 Encounter for change or removal of nonsurgical wound dressing (principal); I10 Essential (primary) hypertension; E78.00 Pure hypercholesterolemia, unspecified; Z87.891 Personal history of nicotine dependence
CPT/HCPCS: 99281

== ENCOUNTER → 2024-09-08 12:32 | Outpatient (REF) | payer MEDICARE, OTHER, SELFPAY | LOC: WOUND 12:32 | PROVIDERS: ATTENDING PHYSICIAN Surgery; FAMILY PHYSICIAN Internal Medicine Geriatric Medicine | DX: L97.222 Non-pressure chronic ulcer of left calf with fat layer exposed (principal); I25.10 Atherosclerotic heart disease of native coronary artery without angina pectoris; Z79.01 Long term (current) use of anticoagulants | CPT/HCPCS: 99203 ==

== ENCOUNTER → 2024-09-16 14:33 | Outpatient (REF) | payer MEDICARE, OTHER, SELFPAY | LOC: WOUND 14:33 | PROVIDERS: ATTENDING PHYSICIAN Surgery; FAMILY PHYSICIAN Internal Medicine Geriatric Medicine | DX: L97.222 Non-pressure chronic ulcer of left calf with fat layer exposed (principal); I25.10 Atherosclerotic heart disease of native coronary artery without angina pectoris; Z79.01 Long term (current) use of anticoagulants | CPT/HCPCS: 11042; 97597 ==

== ENCOUNTER → 2024-09-23 14:49 | Outpatient (REF) | payer MEDICARE, OTHER, SELFPAY | LOC: WOUND 14:49 | PROVIDERS: ATTENDING PHYSICIAN Surgery; FAMILY PHYSICIAN Internal Medicine Geriatric Medicine | DX: L97.222 Non-pressure chronic ulcer of left calf with fat layer exposed (principal); I25.10 Atherosclerotic heart disease of native coronary artery without angina pectoris; Z79.01 Long term (current) use of anticoagulants | CPT/HCPCS: 11042 ==

== ENCOUNTER → 2024-09-30 13:48 | Outpatient (REF) | payer MEDICARE, OTHER, SELFPAY | LOC: WOUND 13:48 | PROVIDERS: ATTENDING PHYSICIAN Surgery; FAMILY PHYSICIAN Internal Medicine Geriatric Medicine | DX: L97.222 Non-pressure chronic ulcer of left calf with fat layer exposed (principal); I25.10 Atherosclerotic heart disease of native coronary artery without angina pectoris; I87.312 Chronic venous hypertension (idiopathic) with ulcer of left lower extremity; I87.2 Venous insufficiency (chronic) (peripheral) | CPT/HCPCS: 11042 ==

== ENCOUNTER → 2024-10-07 14:44 | Outpatient (REF) | payer MEDICARE, OTHER, SELFPAY | LOC: WOUND 14:44 | PROVIDERS: ATTENDING PHYSICIAN Surgery; FAMILY PHYSICIAN Internal Medicine | DX: L97.222 Non-pressure chronic ulcer of left calf with fat layer exposed (principal); I25.10 Atherosclerotic heart disease of native coronary artery without angina pectoris; I87.312 Chronic venous hypertension (idiopathic) with ulcer of left lower extremity; I87.2 Venous insufficiency (chronic) (peripheral); I73.9 Peripheral vascular disease, unspecified | CPT/HCPCS: 11042 ==

== ENCOUNTER → 2024-10-14 14:48 | Outpatient (REF) | payer MEDICARE, OTHER, SELFPAY | LOC: WOUND 14:48 | PROVIDERS: ATTENDING PHYSICIAN Surgery; FAMILY PHYSICIAN Internal Medicine Geriatric Medicine | DX: L97.222 Non-pressure chronic ulcer of left calf with fat layer exposed (principal); I25.10 Atherosclerotic heart disease of native coronary artery without angina pectoris; I87.312 Chronic venous hypertension (idiopathic) with ulcer of left lower extremity; I87.2 Venous insufficiency (chronic) (peripheral); I73.9 Peripheral vascular disease, unspecified; L03.116 Cellulitis of left lower limb; Z79.01 Long term (current) use of anticoagulants | CPT/HCPCS: 11042; 87070; 87147; 87186; 87205 ==

== ENCOUNTER → 2024-10-15 06:10 | Outpatient (REF) | payer MEDICARE, OTHER, SELFPAY ==
[2024-10-15 11:05] LABS: Blood Urea Nitrogen 21 mg/dl (9-20); Carbon Dioxide 34 mmol/L (22-30); Chloride 100 mmol/L (98-107); Glucose 102 mg/dl (70-99); Potassium 4.3 mmol/L (3.5-5.1); Sodium 138 mmol/L (135-145); eGFR > 60.00
== END ==
LOC: HWLAB 06:10
PROVIDERS: ATTENDING PHYSICIAN Internal Medicine Cardiovascular Disease; FAMILY PHYSICIAN Internal Medicine Geriatric Medicine
DX: I10 Essential (primary) hypertension (principal)
CPT/HCPCS: 36415; 80048

== ENCOUNTER → 2024-10-16 06:37 | Outpatient (REF) | payer MEDICARE, OTHER, SELFPAY | LOC: RAD 06:37 | PROVIDERS: ATTENDING PHYSICIAN Surgery; FAMILY PHYSICIAN Internal Medicine Geriatric Medicine | DX: L97.222 Non-pressure chronic ulcer of left calf with fat layer exposed (principal); I87.2 Venous insufficiency (chronic) (peripheral); I73.9 Peripheral vascular disease, unspecified | CPT/HCPCS: 93922; 93971 ==

== ENCOUNTER → 2024-10-28 14:51 | Outpatient (REF) | payer MEDICARE, OTHER, SELFPAY | LOC: WOUND 14:51 | PROVIDERS: ATTENDING PHYSICIAN Surgery; FAMILY PHYSICIAN Internal Medicine Geriatric Medicine | DX: L97.222 Non-pressure chronic ulcer of left calf with fat layer exposed (principal); I25.10 Atherosclerotic heart disease of native coronary artery without angina pectoris; I87.312 Chronic venous hypertension (idiopathic) with ulcer of left lower extremity; I87.2 Venous insufficiency (chronic) (peripheral); I73.9 Peripheral vascular disease, unspecified; L03.116 Cellulitis of left lower limb; Z79.01 Long term (current) use of anticoagulants | CPT/HCPCS: 99214 ==

== ENCOUNTER → 2024-11-04 14:42 | Outpatient (REF) | payer MEDICARE, OTHER, SELFPAY | LOC: WOUND 14:42 | PROVIDERS: ATTENDING PHYSICIAN Surgery; FAMILY PHYSICIAN Internal Medicine Geriatric Medicine | DX: L97.222 Non-pressure chronic ulcer of left calf with fat layer exposed (principal); I25.10 Atherosclerotic heart disease of native coronary artery without angina pectoris; I87.312 Chronic venous hypertension (idiopathic) with ulcer of left lower extremity; I87.2 Venous insufficiency (chronic) (peripheral); I73.9 Peripheral vascular disease, unspecified; L03.116 Cellulitis of left lower limb; Z79.01 Long term (current) use of anticoagulants | CPT/HCPCS: 11042 ==

== ENCOUNTER → 2024-11-11 09:44 | Outpatient (REF) | payer MEDICARE, OTHER, SELFPAY | LOC: WOUND 09:44 | PROVIDERS: ATTENDING PHYSICIAN Surgery; FAMILY PHYSICIAN Internal Medicine Geriatric Medicine | DX: L97.222 Non-pressure chronic ulcer of left calf with fat layer exposed (principal); I25.10 Atherosclerotic heart disease of native coronary artery without angina pectoris; Z79.01 Long term (current) use of anticoagulants; I87.312 Chronic venous hypertension (idiopathic) with ulcer of left lower extremity; I87.2 Venous insufficiency (chronic) (peripheral); I73.9 Peripheral vascular disease, unspecified; L03.116 Cellulitis of left lower limb | CPT/HCPCS: 11042 ==

== ENCOUNTER → 2024-11-18 14:45 | Outpatient (REF) | payer MEDICARE, OTHER, SELFPAY | LOC: WOUND 14:45 | PROVIDERS: ATTENDING PHYSICIAN Surgery; FAMILY PHYSICIAN Internal Medicine Geriatric Medicine | DX: L97.222 Non-pressure chronic ulcer of left calf with fat layer exposed (principal); I25.10 Atherosclerotic heart disease of native coronary artery without angina pectoris; I87.312 Chronic venous hypertension (idiopathic) with ulcer of left lower extremity; I87.2 Venous insufficiency (chronic) (peripheral); I73.9 Peripheral vascular disease, unspecified; L03.116 Cellulitis of left lower limb; Z79.01 Long term (current) use of anticoagulants | CPT/HCPCS: 11042 ==

== ENCOUNTER → 2024-12-09 09:39 | Outpatient (REF) | payer MEDICARE, OTHER, SELFPAY | LOC: WOUND 09:39 | PROVIDERS: ATTENDING PHYSICIAN Surgery; FAMILY PHYSICIAN Internal Medicine Geriatric Medicine | DX: L97.222 Non-pressure chronic ulcer of left calf with fat layer exposed (principal); I25.10 Atherosclerotic heart disease of native coronary artery without angina pectoris; I87.312 Chronic venous hypertension (idiopathic) with ulcer of left lower extremity; I87.2 Venous insufficiency (chronic) (peripheral); I73.9 Peripheral vascular disease, unspecified; L03.116 Cellulitis of left lower limb; Z79.01 Long term (current) use of anticoagulants | CPT/HCPCS: 99212 ==

== ENCOUNTER → 2025-02-06 06:24 | Outpatient (REF) | payer MEDICARE, OTHER, SELFPAY ==
[2025-02-06 10:02] LABS: % Basophils 0.6 % (0-2); % Eosinophils 7.2 % (0-6); % Immature Granulocytes 0.2 % (0-0.5); % Lymphocytes 37.2 % (20.5-51.1); % Monocytes 9.4 % (1.7-9.3); % Neutrophils 45.4 % (42.2-75.2); Absolute Eosinophils 0.4 10^3/uL (0-0.7); Absolute Lymphocytes 1.9 10^3/uL (1.2-3.4); Absolute Monocytes 0.5 10^3/uL (0.1-0.6); Absolute Neutrophils 2.3 10^3/uL (1.4-6.5); Hematocrit 36.3 % (39.0-52.0); Hemoglobin 12.1 g/dL (13.0-18.0); Mean Corp Hgb Conc. 33.3 g/dL (33.0-37.0); Mean Corpuscular Hgb 31.8 pg (27.0-31.0); Mean Corpuscular Volume 95.3 fL (80.0-94.0); Mean Platelet Volume 11.1 fL (7.4-10.4); Nucleated Red Blood Cells % 0 % (-); Platelet Count 177 10^3/uL (130-400); Red Blood Cell Count 3.81 10^6/uL (4.70-6.10); Red Cell Dist. Width 14.7 % (11.5-14.5); White Blood Cell Count 5.1 10^3/uL (4.8-10.8)
[2025-02-06 10:11] LABS: C-Reactive Protein < 5.00 mg/L (0.0-10.00)
[2025-02-06 10:13] LABS: Urine Albumin Negative (Neg - Trace); Urine Bilirubin Negative (Negative); Urine Character Clear (Clear); Urine Color Yellow; Urine Glucose Negative (Negative); Urine Ketone Negative (Negative); Urine Leukocyte Negative (Negative); Urine Nitrite Negative (Negative); Urine Occult Blood 1+ (Negative); Urine Specific Gravity 1.015 (<1.030); Urine Urobilinogen Negative (Neg - 1+)
[2025-02-06 10:28] LABS: Vitamin D, 25-OH*** 37.3 ng/mL (30-80)
[2025-02-06 10:36] LABS: Urine Mucus Few; Urine Squamous Cell 0-2 /LPF (Few)
[2025-02-06 10:37] LABS: Urine Amorphous Seen; Urine Hyaline Cast 0-2 /LPF (0-2)
[2025-02-06 10:39] LABS: Urine White Cell 0-2 /HPF (0-5)
[2025-02-06 11:10] LABS: ALT (SGPT) 20 U/L (0-50); AST (SGOT) 20 U/L (17-59); Albumin 3.7 g/dl (3.5-5.0); Alkaline Phosphatase 96 U/L (38-126); Blood Urea Nitrogen 15 mg/dl (9-20); Calcium 9.2 mg/dl (8.4-10.2); Carbon Dioxide 28 mmol/L (22-30); Chloride 112 mmol/L (98-107); Glucose 103 mg/dl (70-99); HDL Cholesterol 37 mg/dl; LDL Cholesterol, Calculated 34 mg/dl; Potassium 4.2 mmol/L (3.5-5.1); Sodium 143 mmol/L (135-145); Total Bilirubin 0.7 mg/dl (0.2-1.3); Total Cholesterol 109 mg/dl (50-199); Total Protein 6.5 g/dl (6.3-8.2); Triglyceride 190 mg/dl (10-149); Very Low Density Lipoprotein 38 mg/dl (0-30); eGFR > 60.00
== END ==
LOC: HWLAB 06:24
PROVIDERS: ATTENDING PHYSICIAN Internal Medicine Rheumatology; FAMILY PHYSICIAN Internal Medicine Geriatric Medicine
DX: I10 Essential (primary) hypertension (principal); I49.3 Ventricular premature depolarization; E78.2 Mixed hyperlipidemia; I45.10 Unspecified right bundle-branch block; K21.9 Gastro-esophageal reflux disease without esophagitis; Z23 Encounter for immunization; E03.9 Hypothyroidism, unspecified; Z13.31 Encounter for screening for depression; E55.9 Vitamin D deficiency, unspecified; Z79.899 Other long term (current) drug therapy
CPT/HCPCS: 36415; 80053; 80061; 81003; 81015; 82306; 85025; 86140

== ENCOUNTER → 2025-06-10 06:08 | Outpatient (REF) | payer MEDICARE, OTHER, SELFPAY ==
[2025-06-10 10:28] LABS: Hematocrit 39.4 % (39.0-52.0); Hemoglobin 12.8 g/dL (13.0-18.0); Mean Corp Hgb Conc. 32.5 g/dL (33.0-37.0); Mean Corpuscular Volume 98.7 fL (80.0-94.0); Nucleated Red Blood Cells % 0 % (-); Platelet Count 165 10^3/uL (130-400); Red Cell Dist. Width 14.5 % (11.5-14.5)
[2025-06-10 10:44] LABS: ALT (SGPT) 40 U/L (0-50); AST (SGOT) 30 U/L (17-59); Albumin 3.9 g/dl (3.5-5.0); Alkaline Phosphatase 84 U/L (38-126); Blood Urea Nitrogen 19 mg/dl (9-20); Calcium 9.2 mg/dl (8.4-10.2); Carbon Dioxide 29 mmol/L (22-30); Chloride 109 mmol/L (98-107); Glucose 99 mg/dl (70-99); HDL Cholesterol 46 mg/dl; LDL Cholesterol, Calculated 60 mg/dl; Potassium 4.4 mmol/L (3.5-5.1); Sodium 142 mmol/L (135-145); Total Protein 6.5 g/dl (6.3-8.2); Very Low Density Lipoprotein 28 mg/dl (0-30); eGFR > 60.00
[2025-06-10 10:51] LABS: C-Reactive Protein < 5.00 mg/L (0.0-10.00)
== END ==
LOC: HWLAB 06:08
PROVIDERS: ATTENDING PHYSICIAN Internal Medicine Rheumatology; FAMILY PHYSICIAN Internal Medicine Geriatric Medicine
DX: E78.2 Mixed hyperlipidemia (principal); E03.9 Hypothyroidism, unspecified; E55.9 Vitamin D deficiency, unspecified; M11.20 Other chondrocalcinosis, unspecified site; M19.031 Primary osteoarthritis, right wrist; M19.032 Primary osteoarthritis, left wrist; M79.642 Pain in left hand; Z68.31 Body mass index [BMI] 31.0-31.9, adult; Z79.899 Other long term (current) drug therapy; Z87.828 Personal history of other (healed) physical injury and trauma
CPT/HCPCS: 36415; 80053; 80061; 85025; 86140